=== PATIENT | male | born 2000 | race Caucasian/White ===

== ENCOUNTER 2022-06-17 10:36 | Emergency (ER) | payer OTHER, SELFPAY ==
--- NOTE | ~2022-06-17 | CT_ITS ---
EXAMINATION: CT abdomen pelvis wo con DATE: 06/17/2022 11:50 INDICATION: Right flank pain TECHNIQUE: Computed tomography (CT) of the abdomen and pelvis was performed without intravenous contr ast. The dose-length product (DLP) was 1102.42 mGy-cm. Automated exposure control and iterative recon struction technique were employed. COMPARISON: None FINDINGS: The lung bases are clear. The heart size is normal. The liver, spleen, pancreas, gallbladde r, and adrenal glands are normal. The kidneys are unremarkable. No stones are identified in the kidne ys, ureters, or bladder. No hydronephrosis or hydroureter. No pathologically enlarged abdominal or pe lvic lymph nodes are identified. The appendix is normal. There is a small fat-containing umbilical he rnia. There is mild lumbar spondylosis. IMPRESSION: 1. No CT correlate for the patient's symptoms. Reviewed, dictated and finalized at location L. [facility] [employer]
--- NOTE | ~2022-06-17 | US_ITS ---
EXAMINATION: US abdomen limited DATE: 06/17/2022 12:41 INDICATION: Abnormal liver function tests. TECHNIQUE: Multiple grayscale and Doppler ultrasound images of the abdomen were obtained. COMPARISON: CT abdomen and pelvis 06/17/2022 FINDINGS: The visualized portions of the head of the pancreas are normal. The liver is normal without focal lesion. No liver surface nodularity. There is normal flow in main portal vein. The gallbladder is normal in size. No gallstones or gallbladder wall thickening. There is no sonographic Yoo sign . The common duct is normal and measures 2 mm. IMPRESSION: 1. Normal right upper quadrant ultrasound. Reviewed, dictated and finalized at location A. [employer]
[2022-06-17 10:45] VITALS: BP 142/82; PULSE 76; RESP 20; TEMP 36.4; O2SAT 100
--- NOTE | 2022-06-17 11:26 | ED.ABDPAIN ---
HPI - Abdominal Pain General Chief Complaint: Back Pain/Injury Stated Complaint: R flank pain Time Seen by Provider: 06/17/22 11:02 History of Present Illness HPI narrative: 22-year-old previously healthy male here for evaluation of right flank pain for the past day. Patient states that the pain comes in intermittent waves, sharp and stabbing in nature. His symptoms ibuprofen without relief of his symptoms. Denies history of similar previous sensation. He is also noted a sore throat, cough and sinus congestion over the past day. He denies any fevers, chills, nausea, vomiting, dysuria, urgency or frequency. No chest pain, shortness of breath or leg swelling. Related Data Allergies Allergy/AdvReac Type Severity Reaction Status Date / Time No Known Allergies Allergy Verified 06/17/22 11:31 Review of Systems Review of Systems: Gen: Denies fevers or chills Eyes: Denies eye pain or visual change ENT: Reports congestion, cough, sore throat Respiratory: Reports cough. CV: Denies chest pain or palpitations GI: Reports right flank pain. Denies abdominal pain nausea, emesis or diarrhea denies burning, urgency, frequency or hematuria Musculoskeletal: Denies back pain or muscle pain Neuro: Denies numbness, tingling, weakness or focal weakness Skin: Denies rash Except as documented, all other systems reviewed and negative Exam Narrative: APPEARANCE: Well appearing, no pain in distress, well-nourished. Head: Normocephalic and atraumatic. EYES: PERRLA/EOMI, conjunctivae clear NOSE: No nasal drainage EARS: External ear normal in appearance THROAT: Erythema noted to posterior oropharynx. No tonsillar exudates. Uvula is midline. NECK: Supple. No adenopathy, no masses. RESPIRATORY: Airway patent, respirations nonlabored. Clear to auscultation bilaterally, no rales, rhonchi, wheezing. CARDIOVASCULAR: Regular rate and rhythm without murmurs, rubs, or gallops. ABDOMINAL: Normoactive bowel sounds. Soft, nontender, nondistended. No rebound tenderness or guarding. MUSCULOSKELETAL: Extremities are warm and well-perfused. Moves all extremities well. No edema. NEURO: Normal speech. No focal neurologic deficits. SKIN: Skin is warm and dry. No rashes. PSYCHIATRIC: Normal affect/mood. Course Vital Signs Vital signs: Vital Signs Temperature 97.5 F L 01/31/23 10:45 Pulse Rate 76 06/17/22 10:45 Respiratory Rate 20 06/17/22 10:45 Blood Pressure 142/82 H 06/17/22 10:45 Pulse Oximetry 100 06/17/22 10:45 Oxygen Delivery Room Air 06/17/22 10:45 Temperature 97.5 F L 06/17/22 10:45 Pulse Rate 62 06/17/22 13:32 Respiratory Rate 16 06/17/22 13:32 Blood Pressure 137/75 06/17/22 13:32 Pulse Oximetry 98 06/17/22 13:32 Oxygen Delivery Room Air 06/17/22 10:45 MDM - Abdominal Pain MDM Narrative Medical decision making narrative: 22-year-old male here for evaluation of right flank pain over the past several days. No urinary symptoms. Patient is nontoxic in appearance with normal vital signs. Patient is a light leukocytosis to 11.5, ALT is 68 and alk phos is up at 174. AST and T bili are normal. CT abdomen is normal. Right upper quadrant ultrasound without acute findings. Patient was feeling improved after Tylenol. Likely MSK sprain. He be discharged home to follow-up with his primary care doctor regarding LFT elevation, return precautions were discussed and he voiced understanding. Lab Data 06/17/22 11:39 06/17/22 11:39 Labs: Lab Results 06/17/22 06/17/22 06/17/22 Range/Units 11:39 11:39 11:39 WBC 11.5 H (4.5-10.0) K/mm3 RBC 5.87 (4.6-6.20) M/mm3 Hgb 17.0 (14.0-18.0) g/dL Hct 50.8 (42.0-52.0) % MCV 86.5 (80-100) fl MCH 29.0 (26-34) pg MCHC 33.5 (32-36) g/dl RDW 12.7 (11.5-14.5) % Plt Count 161 (150-375) k/mm3 MPV 11.0 H (7.4-10.4) fl Immature Gran % (Auto) 0.3 (0-0.5) % Neut % (Auto) 78.6 H (45.5-73.1) %
[2022-06-17 11:43] LABS: Basophils Percent Auto 0.3 % (0.2-1.2); Eosinophils Absolute Auto 0.1 K/mm3 (0-0.3); Eosinophils Percent Auto 0.4 % (0-4.4); Hematocrit 50.8 % (42.0-52.0); Immature Granulocyte Absolute 0.04 K/mm3 (0.00-0.031); Immature Granulocyte Percent A 0.3 % (0-0.5); Lymphocytes Absolute Auto 1.49 K/mm3 (0.9-3.2); Mean Corpuscular HGB Conc 33.5 g/dl (32-36); Mean Corpuscular Volume 86.5 fl (80-100); Monocytes Absolute Auto 0.9 K/mm3 (0.1-0.6); Monocytes Percent Auto 7.4 % (2.6-8.5); Neutrophils Percent Auto 78.6 % (45.5-73.1); Platelet Count Result 161 k/mm3 (150-375); Red Blood Count 5.87 M/mm3 (4.6-6.20); Red Cell Distribution Width 12.7 % (11.5-14.5); White Blood Count 11.5 K/mm3 (4.5-10.0)
--- NOTE | 2022-06-17 11:47 | PC.NURSE ---
Patient aware of needing to provide urine sample. Patient will attempt to urinate when he arrives back from CT
[2022-06-17 11:55] LABS: Alanine Aminotransferase 68 U/L (6-50); Albumin Level 4.4 g/dL (3.5-5.1); Alkaline Phosphatase 174 U/L (38-126); Anion Gap 7 mmol/L (8-16); Aspartate Amino Transferase 33 U/L (17-59); Blood Urea Nitrogen 10 mg/dL (9-20); Calcium 8.9 mg/dL (8.4-10.2); Carbon Dioxide 30 mmol/L (22-30); Chloride 100 mmol/L (98-107); Estimated CRCL calculation 137 ml/min; Estimated Glomerular Filt Rate > 60; Glucose 93 mg/dL (65-110); Sodium 137 mmol/L (137-145)
[2022-06-17 12:43] LABS: Appearance Urine Clear (Clear); Bilirubin Urine Negative (Negative); Blood Urine Trace-intact (Negative); Color Urine Yellow (Yellow); Glucose Urine UA Negative (Negative); Ketones Urine Negative (Negative); Leukocyte Esterase Ur Negative LEU/UL (Negative); Nitrate Urine Negative (Negative); Protein Urine Negative (Negative); Urobilinogen Urine 0.2 mg/dL (<2.0)
[2022-06-17 12:45] LABS: Mucus Urine Rare /lpf; WBC Urine 0-3 /hpf
[2022-06-17 12:50] LABS: Add Urine Microscopic? YES
[2022-06-17 13:32] VITALS: BP 137/75; PULSE 62; RESP 16; O2SAT 98
== END 2022-06-17 13:32 | disposition home or self-care (01) ==
PROVIDERS: Emergency Provider Physician Assistant
DX: R10.9 Unspecified abdominal pain (principal)
CPT/HCPCS: 36415; 74176; 76705; 80053; 81001; 85025; 96365; 99284; J0131

== ENCOUNTER 2023-08-22 14:17 | Emergency (ER) | payer BC, SELFPAY ==
--- NOTE | ~2023-08-22 | XR_ITS ---
EXAM: [id number] DATE: 08/22/2023 14:34 HISTORY: Patellar reduction . COMPARISON: None available. FINDINGS: Normal mineralization. No fracture or dislocation. No lytic or blastic lesion. Mild tricom partmental osteoarthritis. Patellar enthesopathy. No erosion or periosteal change. Mild soft tissue s welling over the extensors may reflect low-grade strain/sprain. Small joint effusion. IMPRESSION: No acute osseous finding in the right knee. Reviewed, dictated and finalized at location K.
[2023-08-22 14:03] VITALS: BP 132/86; PULSE 66; RESP 16; TEMP 36.6; O2SAT 100
--- NOTE | 2023-08-22 14:23 | ED.GENADULT ---
HPI - General Adult General Chief complaint: Extremity Injury, Lower Stated complaint: knee deformity Time Seen by Provider: 08/22/23 14:21 History of Present Illness HPI narrative: 23-year-old male presenting to the emergency department for evaluation of right knee pain. Patient was playing spike ball when he had knee to knee contact with another person. Patient called EMS for a right knee deformity. Upon arrival emergency department patient had obvious patellar dislocation this was reduced shortly after arrival to the emergency department. Just prior to arrival patient had received 8 mg of IV morphine. Related Data Allergies Allergy/AdvReac Type Severity Reaction Status Date / Time No Known Allergies Allergy Verified 06/17/22 11:31 Review of Systems Review of Systems: All systems reviewed & are unremarkable except as noted in HPI and below Exam Narrative: APPEARANCE: Well appearing, no pain, no distress, well-nourished. HEAD: normocephalic, atraumatic. EYES: PERRLA/EOMI, conjunctivae clear. NOSE: Normal no drainage EARS:TMS clear with good light reflex. THROAT: Pharynx clear, no exudate. NECK: Supple. No adenopathy, no masses. RESPIRATORY: Airway patent, respirations nonlabored. Clear to auscultation bilaterally, no rales, rhonchi, wheezing. CARDIOVASCULAR: Regular rate and rhythm without murmurs rubs or gallops. ABDOMINAL: Soft, nontender, nondistended, normal bowel sounds MUSCULOSKELETAL: Right knee patellar dislocation NEURO: Alert. Cranial nerves II through XII intact. Good gait. Good coordination SKIN: Warm, dry. Normal Color Course Course Emergency Course: Patient was placed in a knee immobilizer provided crutches encouraged to have close follow-up with Orthopedics. Vital Signs Vital signs: Vital Signs Temperature 97.8 F 08/22/23 14:03 Pulse Rate 66 08/22/23 14:03 Respiratory Rate 16 08/22/23 14:03 Blood Pressure 132/86 08/22/23 14:03 Pulse Oximetry 100 08/22/23 14:03 Oxygen Delivery Room Air 08/22/23 14:03 Temperature 98.4 F 08/22/23 15:29 Pulse Rate 100 08/22/23 15:29 Respiratory Rate 14 08/22/23 15:29 Blood Pressure 147/84 H 08/22/23 15:29 Pulse Oximetry 99 08/22/23 15:29 Oxygen Delivery Room Air 08/22/23 14:03 Procedures Orthopedic Joint Reduction Joint #1: Time Out Performed: Yes Side: right Joint Reduction Location: knee/patella Analgesia: none Pre-Procedure Neuro Vascular Exam: normal Shoulder Technique Used (if applicable): traction/counter-traction Technique used: traction/counter-traction Post-reduction neuro exam: intact Post-reduction vascular: intact Post Reduction X-Ray Obtained: Yes Post Reduction X-Ray Results: reduced Splint Applied: Yes Patient Tolerated Procedure: well and no complications Medical Decision Making MDM Narrative Medical decision making narrative: 23-year-old male present to the emergency department for evaluation of a dislocated right patella. X-ray shows reduction of the patellar dislocation. Patient was provided knee immobilizer and crutches and patient was encouraged to have close follow-up with Orthopedics. Differential Diagnosis Differential Diagnosis: Quadriceps tendon rupture, patellar dislocation, femur fracture, tibial fracture Vital Signs Vital Signs: Vital Signs Temperature 97.8 F 08/22/23 14:03 Pulse Rate 66 08/22/23 14:03 Respiratory Rate 16 08/22/23 14:03 Blood Pressure 132/86 08/22/23 14:03 Pulse Oximetry 100 08/22/23 14:03 Oxygen Delivery Room Air 08/22/23 14:03 Temperature 98.4 F 08/22/23 15:29 Pulse Rate 100 08/22/23 15:29 Respiratory Rate 14 08/22/23 15:29 Blood Pressure 147/84 H 08/22/23 15:29 Pulse Oximetry 99 08/22/23 15:29 Oxygen Delivery Room Air 08/22/23 14:03 Imaging Data Radiologist's impression: Impressions Knee X-Ray 08/22/23 14:40 IMPRES
[2023-08-22 15:29] VITALS: BP 147/84; PULSE 100; RESP 14; TEMP 36.9; O2SAT 99
== END 2023-08-22 15:31 | disposition home or self-care (01) ==
PROVIDERS: Emergency Provider Emergency Medicine
DX: S83.004A Unspecified dislocation of right patella, initial encounter (principal); W51.XXXA Accidental striking against or bumped into by another person, initial encounter; Y93.69 Activity, other involving other sports and athletics played as a team or group
CPT/HCPCS: 27560; 73560; 99285

== ENCOUNTER 2023-09-03 08:50 | Outpatient (CLI) | payer BC, SELFPAY ==
--- NOTE | ~2023-09-03 | MR_ITS ---
EXAMINATION: MR knee RT wo con DATE: 09/03/2023 09:31 INDICATION: Unspecified right patellar dislocation with anterior right knee pain TECHNIQUE: Magnetic resonance imaging (MRI) of the right knee was performed without intravenous contr ast. Sequences included coronal PD-weighted FSE, coronal PD-weighted FS FSE, sagittal T2-weighted FS E, sagittal PD-weighted FS FSE and axial PD weighted fat saturated FSE. COMPARISON: None. FINDINGS: Medial compartment: Medial meniscus is normal. Articular cartilage is normal. Lateral compartment: Lateral meniscus is normal. Articular cartilage is normal. Patellofemoral compartment: Articular cartilage is normal. Ligaments and tendons: Anterior and posterior cruciate ligaments are normal. The fibular collateral ligament complex is norm al. Tear of the medial patellofemoral retinaculum partial tear of the anterior margin of the medial c ollateral ligament complex at its confluence with the retinaculum. Mild proximal and distal patellar tendinopathy with heterotopic ossicle at the distal patellar tendon likely sequela of chronic [place]- Schlatter's disease. The visualized medial and lateral hamstring tendons as well as the iliotibial ba nd are normal. Fluid: Moderate-sized right knee joint effusion. No loose osteochondral bodies identified. Osseous/other: Marrow edema consistent with bone contusion along the lateral nonarticular surface of the lateral tro chlea. There is a fracture at the inferomedial margin of the patella which could represent with eleva tion of a couple small linear low signal intensity flake-like bone fragments. This could be due to ei ther avulsion fracture of the patellofemoral retinaculum, impaction fracture occurring in conjunction with the previous noted lateral trochlea bone contusion or combination of the two. No pathologic mar row replacing process. IMPRESSION: 1. Constellation of findings consistent with a lateral patellar dislocation and relocation injury inc luding tear of the medial patellofemoral retinaculum, fracture at the inferomedial margin of the dent lla and bone contusion at the lateral nonarticular surface of the lateral trochlea. 2. Partial tear along the anterior margin of the medial collateral ligament at its confluence with th e medial patellofemoral retinaculum. 3. Mild proximal and distal patellar tendinopathy with distal heterotopic ossicle consistent with lik florina prior [place]-Schlatter's disease. Reviewed, dictated and finalized at location A. IMPRESSION: 1. Constellation of findings consistent with a lateral patellar dislocation and relocation injury including tear of the medial patellofemoral retinaculum, fra cture at the inferomedial margin of the patella and bone contusion at the later al nonarticular surface of the lateral trochlea. 2. Partial tear along the anterior margin of the medial collateral ligament at its confluence with the medial patellofemoral retinaculum. 3. Mild proximal and distal patellar tendinopathy with distal heterotopic ossic le consistent with likely prior Clarissa-Schlatter's disease.
== END 2023-09-03 08:51 ==
LOC: GOSHIMG 08:51
PROVIDERS: PCP Orthopaedic Surgery; Visit Provider Orthopaedic Surgery
DX: S83.004A Unspecified dislocation of right patella, initial encounter (principal)
CPT/HCPCS: 73721